=== PATIENT | male | born 1960 | race African-American/Black ===

== ENCOUNTER 2017-12-14 09:36 | Inpatient (IN) ==
[2017-12-14] MEDS ORDERED: methylPREDNISolone SOD SUC 125 MG/2 ML VIAL IV STA (10:04)
[2017-12-14] MEDS ORDERED: ONDANSETRON 4 MG/2 ML VIAL IV STA (10:04)
[2017-12-14] MEDS ORDERED: NITROGLYCERIN 2% OINT 1 INCH/GM PACK TOP STA (10:04)
[2017-12-14] MEDS ORDERED: FUROSEMIDE 100 MG/10 ML VIAL IV STA (10:04)
[2017-12-14 10:20] LABS: Basophils % 0.2 % (0.0-0.8); Eosinophils # 0.1 10*3/uL (0.0-0.87); Eosinophils % 0.5 % (0.00-10.9); Hematocrit 41.9 VOL% (42.0-52.0); Hemoglobin 13.6 GM/DL (14.0-18.0); Immature Granulocytes % 0.5 %; Immature Granulocytes Absolute 0.05 #; Lymphocytes # 1.2 10*3/uL (1.4-4.0); Lymphocytes % 11.8 % (21.2-54.2); Mean Corpuscular HGB Conc 32.5 GM/DL (32-36); Mean Corpuscular Hemoglobin 29 PG (27-34); Mean Corpuscular Volume 88.8 FL (87-102); Mean Platelet Volume 10.9 FL (9.6-12.0); Monocytes # 0.6 10*3/uL (0.11-0.8); Monocytes % 6.5 % (1.7-12.7); Neutrophils % 80.5 % (38.7-73.9); Platelet Count 175 T/CUMM (130-400); Red Blood Count 4.72 MC/CUMM (3.8-5.5); Red Cell Distribution Width 13.9 % (9.3-17.3); White Blood Count 9.9 T/CUMM (4-12)
[2017-12-14 10:29] LABS: INR 1.1; PT Patient Result 11.1 SECS
[2017-12-14] MEDS ORDERED: ALBUTEROL 2.5 MG/3 ML NEB RESP TX SCH (10:30)
[2017-12-14 10:41] LABS: Albumin 3.2 G/DL (3.4-5.0); Bilirubin,Total 0.5 MG/DL (0.2-1.0); Calcium 8.6 MG/DL (8.5-10.1); Osmolality,Calculated 283.4 MOS/KG (273-304); Potassium 3.7 MMOL/L (3.5-5.1); Total Protein 7.2 G/DL (6.4-8.3)
[2017-12-14 10:45] LABS: ABG Base Excess 1.9 MMOL/L (-2.5-2.5); ABG HCO3 25.8 MMOL/L (20-26); ABG Oxygen Saturation 95.6 % (95-100); ABG PCO2 38.3 MM HG (35-48); ABG PH 7.447 (7.35-7.45); ABG PO2 77.7 MM HG (80-95)
[2017-12-14] MEDS ORDERED: MAGNESIUM SULF RIDER 2 GM in PREMIX 1 EACH IV STA (11:09)
[2017-12-14] MEDS ORDERED: cefTRIAXone 1,000 MG in SODIUM CHLORIDE 0.9% 100 ML IV STA (11:10)
[2017-12-14 11:27] LABS: Apearance,Urine CLEAR (Clear); Bilirubin,Urine Negative (Negative); Blood, Urine Negative (Negative); Glucose,Urine (UA) 150 mg/dL (Negative); Ketones,Urine Negative (Negative); Mucus,Urine Occasional /LPF (Occasional); Nitrite,Urine Negative (Negative); Protein,Urine 100 MG/DL; RBC,Urine 1 /HPF (0-4); Squamous Epithelial Cell,Urine Occasional /HPF (0-10); Urine Color Yellow (Yellow); Urine Specific Gravity 1.017 (1.001-1.035); WBC,Urine <1 /HPF (0-6)
[2017-12-14 11:35] LABS: Barbiturates Screen,Urine Negative (Negative); Benzodiazepines Screen,Urine Negative (Negative); Cannabinoid Screen,Urine Negative (Negative); Opiate Screen,Urine Negative (Negative); Phencyclidine Screen,Urine Negative (Negative)
[2017-12-14] MEDS ORDERED: FUROSEMIDE 40 MG TABLET PO PRN (12:12)
[2017-12-14] MEDS ORDERED: NON-FORMULARY MEDICATION (Albuterol Inhaler 2 PUFF) INH PRN (12:12)
[2017-12-14] MEDS ORDERED: ALBUTEROL 2.5 MG/3 ML NEB RESP TX PRN (12:12)
[2017-12-14] MEDS ORDERED: ACETAMINOPHEN 325 MG TABLET PO PRN ×2 (12:14)
[2017-12-14] MEDS ORDERED: guaiFENesin/DM ER 600-30 MG TABLET PO PRN (12:14)
[2017-12-14] MEDS ORDERED: MORPHINE 4 MG/1 ML VIAL IV PRN (12:14)
[2017-12-14] MEDS ORDERED: diphenhydrAMINE CAP 25 MG CAPSULE PO PRN (12:14)
[2017-12-14] MEDS ORDERED: DOCUSATE SODIUM 100 MG CAPSULE PO PRN (12:14)
[2017-12-14] MEDS ORDERED: ONDANSETRON 4 MG/2 ML VIAL IV PRN (12:14)
[2017-12-14] MEDS ORDERED: Fluticasone/Vilanterol [Breo Ellipta 200-25 Mcg Inh] INH SCH (12:15)
[2017-12-14] MEDS ORDERED: MAGNESIUM SULF RIDER 2 GM in PREMIX 1 EACH IV PRN ×2 (12:22→14:28)
[2017-12-14] MEDS ORDERED: MAGNESIUM SULF RIDER 4 GM in PREMIX 1 EACH IV PRN ×2 (12:22→14:28)
[2017-12-14] MEDS ORDERED: guaiFENesin/DM ER 600-30 MG TABLET PO SCH (12:30)
[2017-12-14] MEDS ORDERED: GLUCAGON 1 MG VIAL IM PRN (12:41)
[2017-12-14] MEDS ORDERED: DEXTROSE 50% 25 GM/50 ML VIAL IV PRN (12:41)
[2017-12-14] MEDS: ALBUTEROL/IPRATROPIUM 3 ML NEB RESP TX SCH ×2 (13:30→19:08)
[2017-12-14] MEDS ORDERED: POTASSIUM CHLORIDE 20 MEQ TABLET PO ONE (14:28)
[2017-12-14 15:02] LABS: CKMB % 5.8 %
[2017-12-14] MEDS: BUDESONIDE/FORMOTEROL 160-4.5 INHALER 6 GM INH SCH ×2 (16:01→22:48)
[2017-12-14] MEDS: CYANOCOBALAMIN 500 MCG TABLET PO SCH (16:01)
[2017-12-14] MEDS: ASPIRIN EC 81 MG TABLET PO SCH (16:01)
[2017-12-14] MEDS: SODIUM CHLORIDE 0.9% 1,000 ML IV SCH (16:01)
[2017-12-14] MEDS: OMEGA 3 ACID ETHYL ESTERS 1 GM CAPSULE PO SCH (16:02)
[2017-12-14] MEDS: hydrALAZINE 25 MG TABLET PO SCH ×2 (16:02→22:50)
[2017-12-14] MEDS: PANTOPRAZOLE 40 MG TABLET PO SCH (16:02)
[2017-12-14] MEDS: METOPROLOL TARTRATE 50 MG TABLET PO SCH ×2 (16:02→22:48)
[2017-12-14] MEDS: GABAPENTIN 300 MG CAPSULE PO SCH ×2 (16:02→22:48)
[2017-12-14] MEDS: AZITHROMYCIN INJ 500 MG in SODIUM CHLORIDE 0.9% 250 ML IV SCH (16:13)
[2017-12-14] MEDS: INSULIN LISPRO 100 UNIT/ML SUBCUT SCH (17:37)
[2017-12-14 18:46] LABS: CKMB % 7.4 %
[2017-12-14] MEDS ORDERED: ENOXAPARIN 120 MG/0.8 ML SYRINGE SUBCUT ONE (21:30)
[2017-12-14] MEDS: NITROGLYCERIN 2% OINT 1 INCH/GM PACK TOP SCH (22:47)
[2017-12-14] MEDS: ENOXAPARIN 40 MG/0.4 ML SYRINGE SUBCUT SCH (22:48)
[2017-12-14] MEDS: MONTELUKAST 10 MG TABLET PO SCH (22:48)
[2017-12-14 23:47] LABS: CKMB % 8.5 %
[2017-12-15] MEDS: SODIUM CHLORIDE 0.9% 1,000 ML IV SCH (02:15)
[2017-12-15 05:33] LABS: Basophils % 0.1 % (0.0-0.8); Hematocrit 39.5 VOL% (42.0-52.0); Hemoglobin 12.8 GM/DL (14.0-18.0); Immature Granulocytes % 0.5 %; Immature Granulocytes Absolute 0.07 #; Lymphocytes # 0.5 10*3/uL (1.4-4.0); Lymphocytes % 3.6 % (21.2-54.2); Mean Corpuscular HGB Conc 32.4 GM/DL (32-36); Mean Corpuscular Hemoglobin 29 PG (27-34); Mean Corpuscular Volume 88.6 FL (87-102); Mean Platelet Volume 12.1 FL (9.6-12.0); Monocytes # 0.2 10*3/uL (0.11-0.8); Monocytes % 1.4 % (1.7-12.7); Neutrophils # 12.5 10*3/uL (1.4-7.4); Neutrophils % 94.4 % (38.7-73.9); Platelet Count 146 T/CUMM (130-400); Red Blood Count 4.46 MC/CUMM (3.8-5.5); Red Cell Distribution Width 13.9 % (9.3-17.3); White Blood Count 13.3 T/CUMM (4-12)
[2017-12-15 06:04] LABS: Lymphocytes 8 % (20-55); Segmented Neutrophils 91 % (50-85); Total Cells Counted 100
[2017-12-15 06:05] LABS: Hypochromasia 1+; Microcytosis Slight; Ovalocytes Slight
[2017-12-15 06:06] LABS: Calcium 8.7 MG/DL (8.5-10.1); Osmolality,Calculated 285.8 MOS/KG (273-304); Platelet Estimate Adequate; Potassium 4.6 MMOL/L (3.5-5.1)
[2017-12-15 06:21] LABS: Albumin 2.9 G/DL (3.4-5.0); Bilirubin,Total 0.8 MG/DL (0.2-1.0); Calcium 8.8 MG/DL (8.5-10.1); Osmolality,Calculated 285.8 MOS/KG (273-304); Potassium 4.7 MMOL/L (3.5-5.1); Risk Ratio 2.9; Thyroid Stimulating Hormone 0.25 uIU/ml (0.358-3.74); Total Protein 6.9 G/DL (6.4-8.3); VLDL CHOLESTEROL 15.8 MG/DL
[2017-12-15] MEDS: ALBUTEROL/IPRATROPIUM 3 ML NEB RESP TX SCH ×4 (07:00→19:30)
[2017-12-15] MEDS ORDERED: MAGNESIUM SULF RIDER 2 GM in PREMIX 1 EACH IV PRN (08:34)
[2017-12-15] MEDS ORDERED: POTASSIUM CHLORIDE RIDER 10 MEQ in PREMIX 1 EACH IV PRN (08:34)
[2017-12-15] MEDS ORDERED: DIAZEPAM 5 MG TABLET PO ONE (08:37)
[2017-12-15] MEDS ORDERED: diphenhydrAMINE CAP 25 MG CAPSULE PO ONE (08:37)
[2017-12-15] MEDS: INSULIN LISPRO 100 UNIT/ML SUBCUT SCH ×2 (08:38→17:09)
[2017-12-15] MEDS ORDERED: ATORVASTATIN 40 MG TABLET PO ONE (08:42)
[2017-12-15] MEDS ORDERED: SODIUM CHLORIDE 0.45% 1,000 ML IV SCH (09:00)
[2017-12-15] MEDS ORDERED: SODIUM CHLORIDE 0.9% 1,000 ML IV SCH (09:00)
[2017-12-15] MEDS: OMEGA 3 ACID ETHYL ESTERS 1 GM CAPSULE PO SCH (09:38)
[2017-12-15] MEDS: GABAPENTIN 300 MG CAPSULE PO SCH ×2 (09:38→23:04)
[2017-12-15] MEDS ORDERED: BENZONATATE 100 MG CAPSULE PO ONE (10:38)
[2017-12-15] MEDS: NITROGLYCERIN 2% OINT 1 INCH/GM PACK TOP SCH ×2 (10:43→23:04)
[2017-12-15] MEDS: CYANOCOBALAMIN 500 MCG TABLET PO SCH (10:43)
[2017-12-15] MEDS: PANTOPRAZOLE 40 MG TABLET PO SCH (10:43)
[2017-12-15] MEDS: METOPROLOL TARTRATE 50 MG TABLET PO SCH ×2 (10:44→23:05)
[2017-12-15] MEDS: hydrALAZINE 25 MG TABLET PO SCH ×3 (10:44→23:04)
[2017-12-15] MEDS: ASPIRIN EC 81 MG TABLET PO SCH (10:44)
[2017-12-15] MEDS: BUDESONIDE/FORMOTEROL 160-4.5 INHALER 6 GM INH SCH ×2 (10:45→23:05)
[2017-12-15] MEDS ORDERED: MIDAZOLAM 2 MG/2 ML VIAL ONE (11:36)
[2017-12-15] MEDS ORDERED: NITROGLYCERIN DRIP 50 MG/250 ML BOTTLE IV ONE (11:36)
[2017-12-15] MEDS ORDERED: fentaNYL 100 MCG/2 ML VIAL ONE (11:37)
[2017-12-15] MEDS ORDERED: VERAPAMIL 5 MG/2 ML VIAL ONE (11:37)
[2017-12-15] MEDS ORDERED: ENOXAPARIN 60 MG/0.6 ML SYRINGE ONE (12:05)
[2017-12-15] MEDS ORDERED: TIROFIBAN 5,000 MCG/100 ML PREMIX IV ONE (12:32)
[2017-12-15] MEDS ORDERED: LIDOCAINE 1%/EPI INJ 20 ML VIAL ONE (12:50)
[2017-12-15] MEDS ORDERED: HEPARIN/NACL 0.9% 2 UNITS/ML 500 ML IV ONE (12:58)
[2017-12-15] MEDS ORDERED: TIROFIBAN 5,000 MCG/100 ML PREMIX IV SCH (13:00)
[2017-12-15] MEDS ORDERED: TICAGRELOR 90 MG TABLET ONE (13:13)
[2017-12-15] MEDS: cefTRIAXone 1,000 MG in SYRINGE 1 EACH IV SCH (15:09)
[2017-12-15] MEDS ORDERED: AZITHROMYCIN INJ 500 MG in SODIUM CHLORIDE 0.9% 250 ML IV SCH (15:30)
[2017-12-15] MEDS: AZITHROMYCIN INJ 500 MG in SODIUM CHLORIDE 0.9% 250 ML IV SCH (16:21)
[2017-12-15] MEDS ORDERED: BENZONATATE 100 MG CAPSULE PO PRN (16:29)
[2017-12-15] MEDS: ENOXAPARIN 40 MG/0.4 ML SYRINGE SUBCUT SCH (23:04)
[2017-12-15] MEDS: MONTELUKAST 10 MG TABLET PO SCH (23:05)
[2017-12-15] MEDS: ATORVASTATIN 40 MG TABLET PO SCH (23:05)
[2017-12-16] MEDS: ALBUTEROL/IPRATROPIUM 3 ML NEB RESP TX SCH ×4 (00:50→19:10)
[2017-12-16 04:57] LABS: Basophils % 0.1 % (0.0-0.8); Hematocrit 35.7 VOL% (42.0-52.0); Hemoglobin 11.6 GM/DL (14.0-18.0); Immature Granulocytes % 0.6 %; Immature Granulocytes Absolute 0.09 #; Lymphocytes % 6.9 % (21.2-54.2); Mean Corpuscular HGB Conc 32.5 GM/DL (32-36); Mean Corpuscular Hemoglobin 29 PG (27-34); Mean Corpuscular Volume 88.4 FL (87-102); Mean Platelet Volume 11.6 FL (9.6-12.0); Monocytes % 6.8 % (1.7-12.7); Neutrophils # 12.4 10*3/uL (1.4-7.4); Neutrophils % 85.6 % (38.7-73.9); Platelet Count 177 T/CUMM (130-400); Red Blood Count 4.04 MC/CUMM (3.8-5.5); Red Cell Distribution Width 14.6 % (9.3-17.3); White Blood Count 14.4 T/CUMM (4-12)
[2017-12-16 05:28] LABS: Alanine Aminotransferase 33 U/L (16-61); Albumin 2.8 G/DL (3.4-5.0); Alkaline Phosphatase 130 U/L (45-117); Aspartate Amino Transferase 94 U/L (0-37); Bilirubin,Total < 0.39 MG/DL (0.2-1.0); Blood Urea Nitrogen 26 MG/DL (7-18); Calcium 8.1 MG/DL (8.5-10.1); Glucose 363 MG/DL (74-106); Osmolality,Calculated 298.4 MOS/KG (273-304); Sodium 140 MMOL/L (136-145)
[2017-12-16 05:30] LABS: CKMB % 7.2 %
[2017-12-16] MEDS: METOPROLOL TARTRATE 50 MG TABLET PO SCH (09:43)
[2017-12-16] MEDS: ASPIRIN EC 81 MG TABLET PO SCH (09:43)
[2017-12-16] MEDS: TICAGRELOR 90 MG TABLET PO SCH ×2 (09:43→21:58)
[2017-12-16] MEDS: OMEGA 3 ACID ETHYL ESTERS 1 GM CAPSULE PO SCH (09:43)
[2017-12-16] MEDS: GABAPENTIN 300 MG CAPSULE PO SCH ×2 (09:43→21:59)
[2017-12-16] MEDS: CYANOCOBALAMIN 500 MCG TABLET PO SCH (09:43)
[2017-12-16] MEDS: BUDESONIDE/FORMOTEROL 160-4.5 INHALER 6 GM INH SCH ×2 (09:43→21:59)
[2017-12-16] MEDS: INSULIN LISPRO 100 UNIT/ML SUBCUT SCH ×2 (09:44→17:46)
[2017-12-16] MEDS: hydrALAZINE 25 MG TABLET PO SCH ×3 (09:44→21:58)
[2017-12-16] MEDS: PANTOPRAZOLE 40 MG TABLET PO SCH (09:44)
[2017-12-16] MEDS: AZITHROMYCIN 250 MG TABLET PO SCH (12:04)
[2017-12-16] MEDS: NITROGLYCERIN 2% OINT 1 INCH/GM PACK TOP SCH ×2 (12:04→21:59)
[2017-12-16] MEDS: cefTRIAXone 1,000 MG in SYRINGE 1 EACH IV SCH (12:10)
[2017-12-16] MEDS: FUROSEMIDE 40 MG/4 ML VIAL IV SCH (13:09)
[2017-12-16] MEDS: SODIUM CHLORIDE 0.9% 1,000 ML IV SCH (15:24)
[2017-12-16] MEDS: ENOXAPARIN 40 MG/0.4 ML SYRINGE SUBCUT SCH (21:57)
[2017-12-16] MEDS: MONTELUKAST 10 MG TABLET PO SCH (21:58)
[2017-12-16] MEDS: INSULIN GLARGINE 100 UNIT/ML SUBCUT SCH (21:58)
[2017-12-16] MEDS: ATORVASTATIN 40 MG TABLET PO SCH (21:59)
[2017-12-16] MEDS: NEBIVOLOL 10 MG TABLET PO SCH (21:59)
[2017-12-17] MEDS: ALBUTEROL/IPRATROPIUM 3 ML NEB RESP TX SCH ×4 (00:26→19:17)
[2017-12-17 05:44] LABS: Basophils % 0.1 % (0.0-0.8); Eosinophils # 0.1 10*3/uL (0.0-0.87); Eosinophils % 0.6 % (0.00-10.9); Hematocrit 35.4 VOL% (42.0-52.0); Hemoglobin 11.2 GM/DL (14.0-18.0); Immature Granulocytes % 0.6 %; Immature Granulocytes Absolute 0.05 #; Lymphocytes % 10.8 % (21.2-54.2); Mean Corpuscular HGB Conc 31.6 GM/DL (32-36); Mean Corpuscular Hemoglobin 29 PG (27-34); Mean Corpuscular Volume 90.5 FL (87-102); Monocytes # 0.8 10*3/uL (0.11-0.8); Monocytes % 9.3 % (1.7-12.7); Neutrophils # 7.1 10*3/uL (1.4-7.4); Neutrophils % 78.6 % (38.7-73.9); Platelet Count 170 T/CUMM (130-400); Red Blood Count 3.91 MC/CUMM (3.8-5.5); Red Cell Distribution Width 14.4 % (9.3-17.3)
[2017-12-17 06:10] LABS: Calcium 8.2 MG/DL (8.5-10.1); Osmolality,Calculated 288.3 MOS/KG (273-304); Potassium 3.5 MMOL/L (3.5-5.1)
[2017-12-17] MEDS: SODIUM CHLORIDE 0.9% 1,000 ML IV SCH ×2 (06:40→12:31)
[2017-12-17] MEDS ORDERED: methylPREDNISolone SOD SUC 125 MG/2 ML VIAL IV STA (09:35)
[2017-12-17] MEDS ORDERED: FUROSEMIDE 40 MG/4 ML VIAL IV STA (09:37)
[2017-12-17] MEDS: FUROSEMIDE 40 MG/4 ML VIAL IV SCH (09:48)
[2017-12-17] MEDS: PANTOPRAZOLE 40 MG TABLET PO SCH (09:49)
[2017-12-17] MEDS: ASPIRIN EC 81 MG TABLET PO SCH (09:49)
[2017-12-17] MEDS: GABAPENTIN 300 MG CAPSULE PO SCH ×2 (09:49→21:47)
[2017-12-17] MEDS: TICAGRELOR 90 MG TABLET PO SCH ×2 (09:49→21:49)
[2017-12-17] MEDS: CYANOCOBALAMIN 500 MCG TABLET PO SCH (09:49)
[2017-12-17] MEDS: hydrALAZINE 25 MG TABLET PO SCH ×3 (09:49→21:47)
[2017-12-17] MEDS: NEBIVOLOL 10 MG TABLET PO SCH (09:49)
[2017-12-17] MEDS: INSULIN LISPRO 100 UNIT/ML SUBCUT SCH ×2 (09:50→17:45)
[2017-12-17] MEDS: BUDESONIDE/FORMOTEROL 160-4.5 INHALER 6 GM INH SCH ×2 (09:50→21:51)
[2017-12-17] MEDS: OMEGA 3 ACID ETHYL ESTERS 1 GM CAPSULE PO SCH (09:55)
[2017-12-17] MEDS: NITROGLYCERIN 2% OINT 1 INCH/GM PACK TOP SCH ×2 (09:56→21:50)
[2017-12-17] MEDS ORDERED: POTASSIUM CHLORIDE 20 MEQ TABLET PO ONE (10:04)
[2017-12-17] MEDS: cefTRIAXone 1,000 MG in SYRINGE 1 EACH IV SCH (12:15)
[2017-12-17] MEDS: MAGNESIUM OXIDE 400 MG TABLET PO SCH ×2 (12:15→21:49)
[2017-12-17] MEDS: AZITHROMYCIN 250 MG TABLET PO SCH (12:15)
[2017-12-17] MEDS ORDERED: THEOPHYLLINE ER 300 MG TABLET PO ONE (18:50)
[2017-12-17] MEDS: ATORVASTATIN 40 MG TABLET PO SCH (21:47)
[2017-12-17] MEDS: ENOXAPARIN 40 MG/0.4 ML SYRINGE SUBCUT SCH (21:47)
[2017-12-17] MEDS: MONTELUKAST 10 MG TABLET PO SCH (21:47)
[2017-12-17] MEDS: THEOPHYLLINE ER 300 MG TABLET PO SCH (21:48)
[2017-12-17] MEDS: DILTIAZEM CD 240 MG CAPSULE PO SCH (21:49)
[2017-12-17] MEDS: INSULIN GLARGINE 100 UNIT/ML SUBCUT SCH (21:50)
[2017-12-17] MEDS: ALBUTEROL 2 MG TABLET PO SCH (23:05)
[2017-12-18] MEDS: ALBUTEROL/IPRATROPIUM 3 ML NEB RESP TX SCH ×4 (00:32→20:48)
[2017-12-18 05:53] LABS: Basophils % 0.1 % (0.0-0.8); Hemoglobin 12.9 GM/DL (14.0-18.0); Immature Granulocytes % 0.7 %; Lymphocytes # 0.3 10*3/uL (1.4-4.0); Lymphocytes % 2.3 % (21.2-54.2); Mean Corpuscular HGB Conc 32.3 GM/DL (32-36); Mean Corpuscular Hemoglobin 29 PG (27-34); Mean Corpuscular Volume 89.1 FL (87-102); Mean Platelet Volume 11.2 FL (9.6-12.0); Monocytes # 0.2 10*3/uL (0.11-0.8); Monocytes % 1.6 % (1.7-12.7); Neutrophils # 13.5 10*3/uL (1.4-7.4); Neutrophils % 95.3 % (38.7-73.9); Platelet Count 203 T/CUMM (130-400); Red Blood Count 4.49 MC/CUMM (3.8-5.5); Red Cell Distribution Width 13.8 % (9.3-17.3); White Blood Count 14.1 T/CUMM (4-12)
[2017-12-18] MEDS: ALBUTEROL 2 MG TABLET PO SCH ×3 (06:09→21:06)
[2017-12-18 06:26] LABS: Calcium 8.7 MG/DL (8.5-10.1); Osmolality,Calculated 295.7 MOS/KG (273-304); Potassium 4.4 MMOL/L (3.5-5.1)
[2017-12-18 07:21] LABS: Band Neutrophils 1 % (0-10); Hypochromasia 1+; Platelet Estimate Adequate; Segmented Neutrophils 98 % (50-85); Target Cells Slight; Total Cells Counted 100
[2017-12-18] MEDS: INSULIN LISPRO 100 UNIT/ML SUBCUT SCH ×4 (09:36→20:57)
[2017-12-18] MEDS: MONTELUKAST 10 MG TABLET PO SCH ×2 (09:38→20:58)
[2017-12-18] MEDS: THEOPHYLLINE ER 300 MG TABLET PO SCH ×2 (09:38→20:58)
[2017-12-18] MEDS: PANTOPRAZOLE 40 MG TABLET PO SCH (09:38)
[2017-12-18] MEDS: ASPIRIN EC 81 MG TABLET PO SCH (09:38)
[2017-12-18] MEDS: TICAGRELOR 90 MG TABLET PO SCH ×2 (09:38→20:58)
[2017-12-18] MEDS: GABAPENTIN 300 MG CAPSULE PO SCH ×2 (09:39→20:59)
[2017-12-18] MEDS: MAGNESIUM OXIDE 400 MG TABLET PO SCH ×2 (09:39→20:59)
[2017-12-18] MEDS: hydrALAZINE 25 MG TABLET PO SCH ×3 (09:39→20:59)
[2017-12-18] MEDS: CYANOCOBALAMIN 500 MCG TABLET PO SCH (09:39)
[2017-12-18] MEDS: OMEGA 3 ACID ETHYL ESTERS 1 GM CAPSULE PO SCH (09:43)
[2017-12-18] MEDS: BUDESONIDE/FORMOTEROL 160-4.5 INHALER 6 GM INH SCH ×2 (09:43→20:59)
[2017-12-18] MEDS: NITROGLYCERIN 2% OINT 1 INCH/GM PACK TOP SCH (09:43)
[2017-12-18] MEDS: FUROSEMIDE 40 MG/4 ML VIAL IV SCH (09:44)
[2017-12-18] MEDS: AZITHROMYCIN 250 MG TABLET PO SCH (13:47)
[2017-12-18] MEDS: BENZONATATE 100 MG CAPSULE PO SCH ×3 (13:47→20:58)
[2017-12-18] MEDS: cefTRIAXone 1,000 MG in SYRINGE 1 EACH IV SCH (13:49)
[2017-12-18] MEDS: INSULIN GLARGINE 100 UNIT/ML SUBCUT SCH (20:57)
[2017-12-18] MEDS: DILTIAZEM CD 240 MG CAPSULE PO SCH (20:58)
[2017-12-18] MEDS: ATORVASTATIN 40 MG TABLET PO SCH (20:58)
[2017-12-18] MEDS: ENOXAPARIN 40 MG/0.4 ML SYRINGE SUBCUT SCH (20:58)
[2017-12-19] MEDS: ALBUTEROL/IPRATROPIUM 3 ML NEB RESP TX SCH ×4 (01:08→19:56)
[2017-12-19 03:28] LABS: Basophils % 0.1 % (0.0-0.8); Hematocrit 36.3 VOL% (42.0-52.0); Immature Granulocytes % 0.6 %; Immature Granulocytes Absolute 0.09 #; Lymphocytes # 0.7 10*3/uL (1.4-4.0); Lymphocytes % 4.6 % (21.2-54.2); Mean Corpuscular HGB Conc 33.1 GM/DL (32-36); Mean Corpuscular Hemoglobin 29 PG (27-34); Mean Corpuscular Volume 87.5 FL (87-102); Mean Platelet Volume 11.5 FL (9.6-12.0); Monocytes % 6.2 % (1.7-12.7); Neutrophils # 13.5 10*3/uL (1.4-7.4); Neutrophils % 88.5 % (38.7-73.9); Platelet Count 218 T/CUMM (130-400); Red Blood Count 4.15 MC/CUMM (3.8-5.5); Red Cell Distribution Width 14.2 % (9.3-17.3); White Blood Count 15.3 T/CUMM (4-12)
[2017-12-19 03:51] LABS: Calcium 8.7 MG/DL (8.5-10.1); Osmolality,Calculated 290.3 MOS/KG (273-304); Potassium 3.4 MMOL/L (3.5-5.1)
[2017-12-19 04:29] LABS: Lymphocytes 8 % (20-55); Segmented Neutrophils 89 % (50-85)
[2017-12-19 04:32] LABS: Platelet Estimate Normal; Total Cells Counted 100
[2017-12-19] MEDS: ALBUTEROL 2 MG TABLET PO SCH ×3 (06:15→21:45)
[2017-12-19] MEDS: INSULIN LISPRO 100 UNIT/ML SUBCUT SCH ×4 (07:52→21:41)
[2017-12-19] MEDS: INSULIN ASPART PROTAMINE/ASPART 70/30 100 UNIT/ML SUBCUT SCH (09:33)
[2017-12-19] MEDS: BENZONATATE 100 MG CAPSULE PO SCH ×3 (09:34→21:44)
[2017-12-19] MEDS: OMEGA 3 ACID ETHYL ESTERS 1 GM CAPSULE PO SCH (09:34)
[2017-12-19] MEDS: MAGNESIUM OXIDE 400 MG TABLET PO SCH ×2 (09:35→21:44)
[2017-12-19] MEDS: THEOPHYLLINE ER 300 MG TABLET PO SCH ×2 (09:35→21:42)
[2017-12-19] MEDS: CYANOCOBALAMIN 500 MCG TABLET PO SCH (09:35)
[2017-12-19] MEDS: FUROSEMIDE 40 MG TABLET PO SCH (09:36)
[2017-12-19] MEDS: GABAPENTIN 300 MG CAPSULE PO SCH ×2 (09:36→21:43)
[2017-12-19] MEDS: TICAGRELOR 90 MG TABLET PO SCH ×2 (09:36→21:43)
[2017-12-19] MEDS: hydrALAZINE 25 MG TABLET PO SCH ×3 (09:36→21:42)
[2017-12-19] MEDS: AZITHROMYCIN 250 MG TABLET PO SCH ×2 (09:37→10:41)
[2017-12-19] MEDS: ASPIRIN EC 81 MG TABLET PO SCH (09:37)
[2017-12-19] MEDS: PANTOPRAZOLE 40 MG TABLET PO SCH (09:37)
[2017-12-19] MEDS: MONTELUKAST 10 MG TABLET PO SCH ×2 (09:37→21:43)
[2017-12-19] MEDS: BUDESONIDE/FORMOTEROL 160-4.5 INHALER 6 GM INH SCH ×2 (09:37→21:52)
[2017-12-19] MEDS: cefTRIAXone 1,000 MG in SYRINGE 1 EACH IV SCH (13:12)
[2017-12-19] MEDS: INSULIN GLARGINE 100 UNIT/ML SUBCUT SCH (21:40)
[2017-12-19] MEDS: ATORVASTATIN 40 MG TABLET PO SCH (21:42)
[2017-12-19] MEDS: DILTIAZEM CD 240 MG CAPSULE PO SCH (21:42)
[2017-12-19] MEDS: ENOXAPARIN 40 MG/0.4 ML SYRINGE SUBCUT SCH (21:42)
[2017-12-19] MEDS: CYCLOBENZAPRINE 10 MG TABLET PO PRN (21:45)
[2017-12-20] MEDS: ALBUTEROL/IPRATROPIUM 3 ML NEB RESP TX SCH ×4 (00:55→19:53)
[2017-12-20 05:09] LABS: Basophils % 0.1 % (0.0-0.8); Eosinophils # 0.1 10*3/uL (0.0-0.87); Eosinophils % 1.2 % (0.00-10.9); Hematocrit 37.3 VOL% (42.0-52.0); Hemoglobin 11.8 GM/DL (14.0-18.0); Immature Granulocytes % 0.6 %; Immature Granulocytes Absolute 0.06 #; Lymphocytes % 9.6 % (21.2-54.2); Mean Corpuscular HGB Conc 31.6 GM/DL (32-36); Mean Corpuscular Hemoglobin 29 PG (27-34); Mean Corpuscular Volume 91.2 FL (87-102); Mean Platelet Volume 11.5 FL (9.6-12.0); Monocytes # 0.9 10*3/uL (0.11-0.8); Monocytes % 8.6 % (1.7-12.7); Neutrophils # 8.3 10*3/uL (1.4-7.4); Neutrophils % 79.9 % (38.7-73.9); Platelet Count 218 T/CUMM (130-400); Red Blood Count 4.09 MC/CUMM (3.8-5.5); Red Cell Distribution Width 14.4 % (9.3-17.3); White Blood Count 10.4 T/CUMM (4-12)
[2017-12-20 05:45] LABS: Calcium 8.4 MG/DL (8.5-10.1); Osmolality,Calculated 292.3 MOS/KG (273-304); Potassium 3.7 MMOL/L (3.5-5.1)
[2017-12-20] MEDS: ALBUTEROL 2 MG TABLET PO SCH ×3 (06:05→21:02)
[2017-12-20] MEDS: INSULIN ASPART PROTAMINE/ASPART 70/30 100 UNIT/ML SUBCUT SCH (10:04)
[2017-12-20] MEDS: INSULIN LISPRO 100 UNIT/ML SUBCUT SCH ×4 (10:05→21:01)
[2017-12-20] MEDS: CYANOCOBALAMIN 500 MCG TABLET PO SCH (10:06)
[2017-12-20] MEDS: BENZONATATE 100 MG CAPSULE PO SCH ×3 (10:06→21:02)
[2017-12-20] MEDS: AZITHROMYCIN 250 MG TABLET PO SCH ×2 (10:07→12:28)
[2017-12-20] MEDS: THEOPHYLLINE ER 300 MG TABLET PO SCH ×2 (10:07→21:02)
[2017-12-20] MEDS: TICAGRELOR 90 MG TABLET PO SCH ×2 (10:07→21:02)
[2017-12-20] MEDS: PANTOPRAZOLE 40 MG TABLET PO SCH (10:08)
[2017-12-20] MEDS: MONTELUKAST 10 MG TABLET PO SCH ×2 (10:08→21:02)
[2017-12-20] MEDS: MAGNESIUM OXIDE 400 MG TABLET PO SCH ×2 (10:08→21:02)
[2017-12-20] MEDS: FUROSEMIDE 40 MG TABLET PO SCH (10:09)
[2017-12-20] MEDS: ASPIRIN EC 81 MG TABLET PO SCH (10:09)
[2017-12-20] MEDS: GABAPENTIN 300 MG CAPSULE PO SCH ×2 (10:09→21:02)
[2017-12-20] MEDS: OMEGA 3 ACID ETHYL ESTERS 1 GM CAPSULE PO SCH (10:09)
[2017-12-20] MEDS: BUDESONIDE/FORMOTEROL 160-4.5 INHALER 6 GM INH SCH ×2 (10:10→21:07)
[2017-12-20] MEDS: hydrALAZINE 25 MG TABLET PO SCH ×3 (10:10→21:02)
[2017-12-20] MEDS: cefTRIAXone 1,000 MG in SYRINGE 1 EACH IV SCH (14:14)
[2017-12-20] MEDS: ENOXAPARIN 40 MG/0.4 ML SYRINGE SUBCUT SCH (21:01)
[2017-12-20] MEDS: INSULIN GLARGINE 100 UNIT/ML SUBCUT SCH (21:01)
[2017-12-20] MEDS: DILTIAZEM CD 240 MG CAPSULE PO SCH (21:01)
[2017-12-20] MEDS: ATORVASTATIN 40 MG TABLET PO SCH (21:02)
[2017-12-21] MEDS: ALBUTEROL/IPRATROPIUM 3 ML NEB RESP TX SCH ×4 (02:47→19:32)
[2017-12-21 05:41] LABS: Calcium 8.4 MG/DL (8.5-10.1); Osmolality,Calculated 289.4 MOS/KG (273-304); Potassium 3.9 MMOL/L (3.5-5.1)
[2017-12-21] MEDS: ALBUTEROL 2 MG TABLET PO SCH ×3 (06:06→21:22)
[2017-12-21] MEDS: BUDESONIDE/FORMOTEROL 160-4.5 INHALER 6 GM INH SCH ×2 (09:43→20:16)
[2017-12-21] MEDS: INSULIN ASPART PROTAMINE/ASPART 70/30 100 UNIT/ML SUBCUT SCH (09:43)
[2017-12-21] MEDS: INSULIN LISPRO 100 UNIT/ML SUBCUT SCH ×4 (09:43→20:42)
[2017-12-21] MEDS: CYANOCOBALAMIN 500 MCG TABLET PO SCH (09:44)
[2017-12-21] MEDS: BENZONATATE 100 MG CAPSULE PO SCH ×3 (09:44→20:15)
[2017-12-21] MEDS: hydrALAZINE 25 MG TABLET PO SCH ×3 (09:44→20:15)
[2017-12-21] MEDS: ASPIRIN EC 81 MG TABLET PO SCH (09:45)
[2017-12-21] MEDS: GABAPENTIN 300 MG CAPSULE PO SCH ×2 (09:45→20:15)
[2017-12-21] MEDS: FUROSEMIDE 40 MG TABLET PO SCH (09:45)
[2017-12-21] MEDS: MAGNESIUM OXIDE 400 MG TABLET PO SCH ×2 (09:45→20:15)
[2017-12-21] MEDS: PANTOPRAZOLE 40 MG TABLET PO SCH (09:45)
[2017-12-21] MEDS: THEOPHYLLINE ER 300 MG TABLET PO SCH ×2 (09:45→20:15)
[2017-12-21] MEDS: TICAGRELOR 90 MG TABLET PO SCH ×2 (09:45→20:15)
[2017-12-21] MEDS: MONTELUKAST 10 MG TABLET PO SCH ×2 (09:45→20:15)
[2017-12-21] MEDS: OMEGA 3 ACID ETHYL ESTERS 1 GM CAPSULE PO SCH (09:45)
[2017-12-21] MEDS: AZITHROMYCIN 250 MG TABLET PO SCH (12:37)
[2017-12-21] MEDS: cefTRIAXone 1,000 MG in SYRINGE 1 EACH IV SCH (12:37)
[2017-12-21] MEDS: DILTIAZEM CD 240 MG CAPSULE PO SCH (20:15)
[2017-12-21] MEDS: ATORVASTATIN 40 MG TABLET PO SCH (20:15)
[2017-12-21] MEDS: ENOXAPARIN 40 MG/0.4 ML SYRINGE SUBCUT SCH (20:16)
[2017-12-21] MEDS: INSULIN GLARGINE 100 UNIT/ML SUBCUT SCH (20:42)
[2017-12-22] MEDS: ALBUTEROL/IPRATROPIUM 3 ML NEB RESP TX SCH ×4 (00:40→19:02)
[2017-12-22] MEDS: ALBUTEROL 2 MG TABLET PO SCH ×2 (06:24→14:02)
[2017-12-22] MEDS: BUDESONIDE/FORMOTEROL 160-4.5 INHALER 6 GM INH SCH ×2 (10:04→22:46)
[2017-12-22] MEDS: BENZONATATE 100 MG CAPSULE PO SCH ×3 (10:05→22:47)
[2017-12-22] MEDS: MAGNESIUM OXIDE 400 MG TABLET PO SCH ×2 (10:05→22:38)
[2017-12-22] MEDS: GABAPENTIN 300 MG CAPSULE PO SCH ×2 (10:05→22:42)
[2017-12-22] MEDS: CYANOCOBALAMIN 500 MCG TABLET PO SCH (10:05)
[2017-12-22] MEDS: OMEGA 3 ACID ETHYL ESTERS 1 GM CAPSULE PO SCH (10:06)
[2017-12-22] MEDS: hydrALAZINE 25 MG TABLET PO SCH ×3 (10:06→22:38)
[2017-12-22] MEDS: MONTELUKAST 10 MG TABLET PO SCH ×2 (10:06→22:36)
[2017-12-22] MEDS: ASPIRIN EC 81 MG TABLET PO SCH (10:06)
[2017-12-22] MEDS: THEOPHYLLINE ER 300 MG TABLET PO SCH ×2 (10:06→22:37)
[2017-12-22] MEDS: PANTOPRAZOLE 40 MG TABLET PO SCH (10:06)
[2017-12-22] MEDS: FUROSEMIDE 40 MG TABLET PO SCH (10:06)
[2017-12-22] MEDS: TICAGRELOR 90 MG TABLET PO SCH ×2 (10:06→22:46)
[2017-12-22] MEDS: INSULIN LISPRO 100 UNIT/ML SUBCUT SCH ×3 (10:07→17:00)
[2017-12-22] MEDS: INSULIN ASPART PROTAMINE/ASPART 70/30 100 UNIT/ML SUBCUT SCH (10:07)
[2017-12-22] MEDS: LEVOFLOXACIN INJ 500 MG in PREMIX 1 EACH IV SCH (15:45)
[2017-12-22] MEDS: INSULIN GLARGINE 100 UNIT/ML SUBCUT SCH (22:36)
[2017-12-22] MEDS: DILTIAZEM CD 240 MG CAPSULE PO SCH (22:36)
[2017-12-22] MEDS: ENOXAPARIN 40 MG/0.4 ML SYRINGE SUBCUT SCH (22:38)
[2017-12-23] MEDS: ATORVASTATIN 40 MG TABLET PO SCH ×2 (00:23→21:35)
[2017-12-23] MEDS: ALBUTEROL 2 MG TABLET PO SCH ×2 (00:23→06:04)
[2017-12-23] MEDS: INSULIN LISPRO 100 UNIT/ML SUBCUT SCH ×5 (00:23→21:37)
[2017-12-23] MEDS: ALBUTEROL/IPRATROPIUM 3 ML NEB RESP TX SCH ×4 (00:46→20:31)
[2017-12-23 06:02] LABS: Basophils % 0.3 % (0.0-0.8); Eosinophils # 0.2 10*3/uL (0.0-0.87); Eosinophils % 2.7 % (0.00-10.9); Hematocrit 37.5 VOL% (42.0-52.0); Hemoglobin 11.9 GM/DL (14.0-18.0); Immature Granulocytes % 0.4 %; Immature Granulocytes Absolute 0.03 #; Lymphocytes # 0.9 10*3/uL (1.4-4.0); Lymphocytes % 12.4 % (21.2-54.2); Mean Corpuscular HGB Conc 31.7 GM/DL (32-36); Mean Corpuscular Hemoglobin 29 PG (27-34); Mean Corpuscular Volume 90.4 FL (87-102); Mean Platelet Volume 11.2 FL (9.6-12.0); Monocytes # 0.8 10*3/uL (0.11-0.8); Monocytes % 10.7 % (1.7-12.7); Neutrophils # 5.4 10*3/uL (1.4-7.4); Neutrophils % 73.5 % (38.7-73.9); Platelet Count 230 T/CUMM (130-400); Red Blood Count 4.15 MC/CUMM (3.8-5.5); Red Cell Distribution Width 14.2 % (9.3-17.3); White Blood Count 7.4 T/CUMM (4-12)
[2017-12-23 06:22] LABS: Hypochromasia 1+
[2017-12-23 06:24] LABS: Platelet Estimate Normal
[2017-12-23 06:34] LABS: Calcium 8.6 MG/DL (8.5-10.1); Osmolality,Calculated 277.7 MOS/KG (273-304); Potassium 3.8 MMOL/L (3.5-5.1)
[2017-12-23] MEDS: THEOPHYLLINE ER 300 MG TABLET PO SCH ×2 (09:03→21:34)
[2017-12-23] MEDS: BENZONATATE 100 MG CAPSULE PO SCH ×3 (09:03→21:34)
[2017-12-23] MEDS: CYANOCOBALAMIN 500 MCG TABLET PO SCH (09:03)
[2017-12-23] MEDS: FUROSEMIDE 40 MG TABLET PO SCH (09:04)
[2017-12-23] MEDS: MAGNESIUM OXIDE 400 MG TABLET PO SCH ×2 (09:04→21:35)
[2017-12-23] MEDS: ASPIRIN EC 81 MG TABLET PO SCH (09:04)
[2017-12-23] MEDS: OMEGA 3 ACID ETHYL ESTERS 1 GM CAPSULE PO SCH (09:04)
[2017-12-23] MEDS: MONTELUKAST 10 MG TABLET PO SCH ×2 (09:04→21:35)
[2017-12-23] MEDS: TICAGRELOR 90 MG TABLET PO SCH ×2 (09:04→21:35)
[2017-12-23] MEDS: hydrALAZINE 25 MG TABLET PO SCH ×3 (09:04→21:35)
[2017-12-23] MEDS: INSULIN ASPART PROTAMINE/ASPART 70/30 100 UNIT/ML SUBCUT SCH (09:04)
[2017-12-23] MEDS: GABAPENTIN 300 MG CAPSULE PO SCH ×2 (09:04→21:35)
[2017-12-23] MEDS: PANTOPRAZOLE 40 MG TABLET PO SCH (09:04)
[2017-12-23] MEDS: BUDESONIDE/FORMOTEROL 160-4.5 INHALER 6 GM INH SCH ×2 (09:08→21:36)
[2017-12-23] MEDS: predniSONE 10 MG TABLET PO SCH (11:19)
[2017-12-23] MEDS: LEVOFLOXACIN INJ 500 MG in PREMIX 1 EACH IV SCH (11:19)
[2017-12-23] MEDS: ENOXAPARIN 40 MG/0.4 ML SYRINGE SUBCUT SCH (21:35)
[2017-12-23] MEDS: CYCLOBENZAPRINE 10 MG TABLET PO PRN (21:35)
[2017-12-23] MEDS: DILTIAZEM CD 240 MG CAPSULE PO SCH (21:35)
[2017-12-23] MEDS: INSULIN GLARGINE 100 UNIT/ML SUBCUT SCH (21:37)
[2017-12-23] MEDS ORDERED: ZALEPLON 5 MG CAPSULE PO PRN (23:14)
[2017-12-24] MEDS: ALBUTEROL/IPRATROPIUM 3 ML NEB RESP TX SCH ×4 (00:18→20:43)
[2017-12-24] MEDS: predniSONE 10 MG TABLET PO SCH (08:58)
[2017-12-24] MEDS: GABAPENTIN 300 MG CAPSULE PO SCH ×2 (08:58→21:51)
[2017-12-24] MEDS: hydrALAZINE 25 MG TABLET PO SCH ×3 (08:58→21:52)
[2017-12-24] MEDS: PANTOPRAZOLE 40 MG TABLET PO SCH (08:58)
[2017-12-24] MEDS: CYANOCOBALAMIN 500 MCG TABLET PO SCH (08:58)
[2017-12-24] MEDS: BENZONATATE 100 MG CAPSULE PO SCH ×3 (08:58→21:52)
[2017-12-24] MEDS: TICAGRELOR 90 MG TABLET PO SCH ×2 (08:58→21:52)
[2017-12-24] MEDS: ASPIRIN EC 81 MG TABLET PO SCH (08:59)
[2017-12-24] MEDS: MONTELUKAST 10 MG TABLET PO SCH ×2 (08:59→21:51)
[2017-12-24] MEDS: MAGNESIUM OXIDE 400 MG TABLET PO SCH ×2 (08:59→21:52)
[2017-12-24] MEDS: FUROSEMIDE 40 MG TABLET PO SCH (08:59)
[2017-12-24] MEDS: INSULIN ASPART PROTAMINE/ASPART 70/30 100 UNIT/ML SUBCUT SCH (08:59)
[2017-12-24] MEDS: THEOPHYLLINE ER 300 MG TABLET PO SCH ×2 (08:59→21:51)
[2017-12-24] MEDS: OMEGA 3 ACID ETHYL ESTERS 1 GM CAPSULE PO SCH (08:59)
[2017-12-24] MEDS: INSULIN LISPRO 100 UNIT/ML SUBCUT SCH ×4 (09:00→22:00)
[2017-12-24] MEDS: BUDESONIDE/FORMOTEROL 160-4.5 INHALER 6 GM INH SCH ×2 (10:03→21:53)
[2017-12-24] MEDS: LEVOFLOXACIN INJ 500 MG in PREMIX 1 EACH IV SCH (10:03)
[2017-12-24] MEDS ORDERED: DILTIAZEM CD 300 MG CAPSULE PO SCH (21:00)
[2017-12-24] MEDS: ALBUTEROL 2 MG TABLET PO SCH ×2 (21:50→21:51)
[2017-12-24] MEDS: ATORVASTATIN 40 MG TABLET PO SCH (21:51)
[2017-12-24] MEDS: ENOXAPARIN 40 MG/0.4 ML SYRINGE SUBCUT SCH (21:53)
[2017-12-24] MEDS: INSULIN GLARGINE 100 UNIT/ML SUBCUT SCH (21:53)
[2017-12-25] MEDS: ALBUTEROL/IPRATROPIUM 3 ML NEB RESP TX SCH ×3 (00:28→15:30)
[2017-12-25] MEDS: ALBUTEROL 2 MG TABLET PO SCH ×2 (05:40→14:57)
[2017-12-25] MEDS ORDERED: DILTIAZEM CD 240 MG CAPSULE PO SCH (09:00)
[2017-12-25] MEDS: FUROSEMIDE 40 MG TABLET PO SCH (10:10)
[2017-12-25] MEDS: GABAPENTIN 300 MG CAPSULE PO SCH (10:10)
[2017-12-25] MEDS: PANTOPRAZOLE 40 MG TABLET PO SCH (10:10)
[2017-12-25] MEDS: MAGNESIUM OXIDE 400 MG TABLET PO SCH (10:10)
[2017-12-25] MEDS: MONTELUKAST 10 MG TABLET PO SCH (10:10)
[2017-12-25] MEDS: THEOPHYLLINE ER 300 MG TABLET PO SCH (10:10)
[2017-12-25] MEDS: hydrALAZINE 25 MG TABLET PO SCH ×2 (10:10→14:58)
[2017-12-25] MEDS: INSULIN ASPART PROTAMINE/ASPART 70/30 100 UNIT/ML SUBCUT SCH (10:10)
[2017-12-25] MEDS: BENZONATATE 100 MG CAPSULE PO SCH ×2 (10:10→14:58)
[2017-12-25] MEDS: BUDESONIDE/FORMOTEROL 160-4.5 INHALER 6 GM INH SCH (10:10)
[2017-12-25] MEDS: predniSONE 10 MG TABLET PO SCH (10:10)
[2017-12-25] MEDS: ASPIRIN EC 81 MG TABLET PO SCH (10:10)
[2017-12-25] MEDS: TICAGRELOR 90 MG TABLET PO SCH (10:10)
[2017-12-25] MEDS: OMEGA 3 ACID ETHYL ESTERS 1 GM CAPSULE PO SCH (10:10)
[2017-12-25] MEDS: INSULIN LISPRO 100 UNIT/ML SUBCUT SCH ×3 (10:10→16:45)
[2017-12-25] MEDS: CYANOCOBALAMIN 500 MCG TABLET PO SCH (10:10)
[2017-12-25 10:20] LABS: Osmolality,Calculated 284.7 MOS/KG (273-304)
[2017-12-25 10:23] LABS: ABG Base Excess 3.2 MMOL/L (-2.5-2.5); ABG HCO3 27.2 MMOL/L (20-26); ABG Oxygen Saturation 94.5 % (95-100); ABG PCO2 42.7 MM HG (35-48); ABG PH 7.424 (7.35-7.45); ABG PO2 71.8 MM HG (80-95); ABG TCO2 24.8 MMOL/L (23-27)
[2017-12-25] MEDS: LEVOFLOXACIN INJ 500 MG in PREMIX 1 EACH IV SCH (12:46)
[2017-12-25 17:22] VITALS: BP 135/63
== END 2017-12-25 17:25 | disposition home or self-care (01) | DRG 174 ==
LOC: EDUNIT# → EDBD → EDSEX → N.ED 09:36 → N.EDINP 11:34 → SUATTDRO 11:34 → N.EDINP 12:42 → N.TELES 12:51
PROVIDERS: ADMIT Internal Medicine Infectious Disease
PROC: CLCCHCL (ICD-10-PCS; 2017-12-15 12:45)

== ENCOUNTER 2018-03-13 15:01 | Inpatient (IN) ==
[2018-03-13] MEDS ORDERED: methylPREDNISolone SOD SUC 125 MG/2 ML VIAL IV STA (15:26)
[2018-03-13] MEDS ORDERED: ALBUTEROL NEB SOLN 5 MG/ML 20 ML/BOTTLE CONT NEB STA (15:26)
[2018-03-13] MEDS ORDERED: ASPIRIN 325 MG TABLET PO STA (15:26)
[2018-03-13] MEDS ORDERED: NITROGLYCERIN 2% OINT 1 INCH/GM PACK TOP STA (15:26)
[2018-03-13 15:34] LABS: Basophils % 0.1 % (0.0-0.8); Hematocrit 39.6 VOL% (42.0-52.0); Hemoglobin 12.7 GM/DL (14.0-18.0); Immature Granulocytes % 0.6 %; Immature Granulocytes Absolute 0.08 #; Lymphocytes # 0.6 10*3/uL (1.4-4.0); Lymphocytes % 4.8 % (21.2-54.2); Mean Corpuscular HGB Conc 32.1 GM/DL (32-36); Mean Corpuscular Hemoglobin 29 PG (27-34); Mean Corpuscular Volume 90.2 FL (87-102); Mean Platelet Volume 11.2 FL (9.6-12.0); Monocytes # 0.3 10*3/uL (0.11-0.8); Monocytes % 2.7 % (1.7-12.7); Neutrophils # 11.6 10*3/uL (1.4-7.4); Neutrophils % 91.8 % (38.7-73.9); Platelet Count 186 T/CUMM (130-400); Red Blood Count 4.39 MC/CUMM (3.8-5.5); Red Cell Distribution Width 14.6 % (9.3-17.3); White Blood Count 12.6 T/CUMM (4-12)
[2018-03-13 15:44] LABS: INR 1.1; PT Patient Result 11.8 SECS; Partial Thromboplastin Time 27.5 SECS (0-40)
[2018-03-13 15:54] LABS: Alanine Aminotransferase 33 U/L (16-61); Albumin 3.7 G/DL (3.4-5.0); Alkaline Phosphatase 128 U/L (45-117); Aspartate Amino Transferase 13 U/L (0-37); Blood Urea Nitrogen 34 MG/DL (7-18); Calcium 8.9 MG/DL (8.5-10.1); Osmolality,Calculated 301.1 MOS/KG (273-304); Sodium 135 MMOL/L (136-145); Total Protein 7.4 G/DL (6.4-8.3)
[2018-03-13 15:58] LABS: Glucose 532 MG/DL (74-106)
[2018-03-13] MEDS ORDERED: INSULIN REGULAR 100 UNIT/ML SUBCUT STA (15:59)
[2018-03-13] MEDS ORDERED: INSULIN REGULAR 100 UNIT/ML IV STA (15:59)
[2018-03-13] MEDS ORDERED: LEVOFLOXACIN INJ 750 MG in PREMIX 1 EACH IV STA (16:03)
[2018-03-13 16:16] LABS: Apearance,Urine CLEAR (Clear); Bilirubin,Urine Negative (Negative); Blood, Urine Negative (Negative); Glucose,Urine (UA) >=500 mg/dL (Negative); Hyaline Casts,Urine 4 /LPF (0-3); Ketones,Urine Negative (Negative); Nitrite,Urine Negative (Negative); Protein,Urine Negative; RBC,Urine 4 /HPF (0-4); Squamous Epithelial Cell,Urine Occasional /HPF (0-10); Urine Color Straw (Yellow); Urine Specific Gravity 1.017 (1.001-1.035); Urine Urobilinogen < 2.0 EU/DL (0.2-1.0); WBC,Urine 2 /HPF (0-6)
[2018-03-13 16:24] LABS: Hypochromasia 1+; Lymphocytes 3 % (20-55); Segmented Neutrophils 91 % (50-85); Total Cells Counted 100
[2018-03-13 16:26] LABS: Barbiturates Screen,Urine Negative (Negative); Benzodiazepines Screen,Urine Negative (Negative); Cannabinoid Screen,Urine Negative (Negative); Opiate Screen,Urine Negative (Negative); Phencyclidine Screen,Urine Negative (Negative)
[2018-03-13] MEDS ORDERED: SODIUM CHLORIDE 0.9% 1,000 ML IV STA (16:27)
[2018-03-13 17:20] LABS: ABG Base Excess -1.9 MMOL/L (-2.5-2.5); ABG HCO3 22.8 MMOL/L (20-26); ABG Oxygen Saturation 98.8 % (95-100); ABG PCO2 38.7 MM HG (35-48); ABG TCO2 20.2 MMOL/L (23-27)
[2018-03-13] MEDS ORDERED: GLUCAGON 1 MG VIAL IM PRN (17:21)
[2018-03-13] MEDS ORDERED: ACETAMINOPHEN 325 MG TABLET PO PRN (17:21)
[2018-03-13] MEDS ORDERED: CYCLOBENZAPRINE 10 MG TABLET PO PRN (17:37)
[2018-03-13] MEDS ORDERED: ALBUTEROL/IPRATROPIUM 3 ML NEB RESP TX PRN (17:40)
[2018-03-13 18:47] LABS: Lactic Acid 4.6 MMOL/L (0.4-2.0)
[2018-03-13] MEDS: ALBUTEROL/IPRATROPIUM 3 ML NEB RESP TX SCH ×2 (19:33→23:47)
[2018-03-13] MEDS ORDERED: hydrALAZINE 25 MG TABLET PO SCH (21:00)
[2018-03-13] MEDS ORDERED: INSULIN GLARGINE 100 UNIT/ML SUBCUT SCH (21:00)
[2018-03-13] MEDS: SODIUM CHLORIDE 0.9% 1,000 ML IV SCH (21:17)
[2018-03-13] MEDS: TICAGRELOR 90 MG TABLET PO SCH (21:21)
[2018-03-13] MEDS: GABAPENTIN 300 MG CAPSULE PO SCH (21:21)
[2018-03-13] MEDS: ATORVASTATIN 40 MG TABLET PO SCH (21:21)
[2018-03-13] MEDS: MONTELUKAST 10 MG TABLET PO SCH (21:22)
[2018-03-13] MEDS: THEOPHYLLINE ER 300 MG TABLET PO SCH (21:22)
[2018-03-13] MEDS: INSULIN REGULAR 100 UNIT/ML SUBCUT SCH (21:23)
[2018-03-13] MEDS: ENOXAPARIN 30 MG/0.3 ML SYRINGE SUBCUT SCH (21:25)
[2018-03-13] MEDS: DILTIAZEM CD 240 MG CAPSULE PO SCH (21:26)
[2018-03-13] MEDS: BUDESONIDE/FORMOTEROL 160-4.5 INHALER 6 GM INH SCH (21:27)
[2018-03-13 22:34] LABS: Lactic Acid 4.6 MMOL/L (0.4-2.0)
[2018-03-13] MEDS: methylPREDNISolone SOD SUC 40 MG/1 ML VIAL IV SCH (23:45)
[2018-03-14 01:51] LABS: Basophils % 0.1 % (0.0-0.8); Hematocrit 35.5 VOL% (42.0-52.0); Hemoglobin 11.6 GM/DL (14.0-18.0); Immature Granulocytes % 0.9 %; Immature Granulocytes Absolute 0.12 #; Lymphocytes # 0.3 10*3/uL (1.4-4.0); Lymphocytes % 2.4 % (21.2-54.2); Mean Corpuscular HGB Conc 32.7 GM/DL (32-36); Mean Corpuscular Hemoglobin 29 PG (27-34); Mean Corpuscular Volume 89.4 FL (87-102); Mean Platelet Volume 11.2 FL (9.6-12.0); Monocytes # 0.1 10*3/uL (0.11-0.8); Monocytes % 0.9 % (1.7-12.7); Neutrophils # 12.2 10*3/uL (1.4-7.4); Neutrophils % 95.7 % (38.7-73.9); Platelet Count 173 T/CUMM (130-400); Red Blood Count 3.97 MC/CUMM (3.8-5.5); Red Cell Distribution Width 14.6 % (9.3-17.3); White Blood Count 12.8 T/CUMM (4-12)
[2018-03-14 01:58] LABS: Calcium 8.6 MG/DL (8.5-10.1); Osmolality,Calculated 298.5 MOS/KG (273-304); Potassium 3.9 MMOL/L (3.5-5.1); Risk Ratio 1.65; VLDL CHOLESTEROL 20.6 MG/DL
[2018-03-14 02:31] LABS: Lymphocytes 3 % (20-55); Segmented Neutrophils 97 % (50-85); Total Cells Counted 100
[2018-03-14 02:32] LABS: Anisocytosis 1+; Platelet Estimate Normal
[2018-03-14] MEDS: SODIUM CHLORIDE 0.9% 1,000 ML IV SCH ×3 (02:45→19:55)
[2018-03-14] MEDS: ONDANSETRON 4 MG/2 ML VIAL IV PRN ×2 (03:23→20:05)
[2018-03-14] MEDS: methylPREDNISolone SOD SUC 40 MG/1 ML VIAL IV SCH ×4 (05:13→23:57)
[2018-03-14] MEDS ORDERED: SODIUM CHLORIDE 0.9% 1,000 ML IV ONE (07:00)
[2018-03-14] MEDS ORDERED: INSULIN ASPART PROTAMINE/ASPART 70/30 100 UNIT/ML SUBCUT SCH (07:30)
[2018-03-14] MEDS: ALBUTEROL/IPRATROPIUM 3 ML NEB RESP TX SCH ×3 (08:00→19:27)
[2018-03-14] MEDS: INSULIN ASPART PROTAMINE/ASPART 70/30 100 UNIT/ML SUBCUT SCH (08:53)
[2018-03-14] MEDS: OMEGA 3 ACID ETHYL ESTERS 1 GM CAPSULE PO SCH (08:54)
[2018-03-14] MEDS: GABAPENTIN 300 MG CAPSULE PO SCH ×2 (08:54→20:02)
[2018-03-14] MEDS: INSULIN REGULAR 100 UNIT/ML SUBCUT SCH ×7 (08:54→20:08)
[2018-03-14] MEDS: DILTIAZEM CD 240 MG CAPSULE PO SCH ×2 (08:55→20:01)
[2018-03-14] MEDS: PANTOPRAZOLE 40 MG TABLET PO SCH (08:55)
[2018-03-14] MEDS: hydrALAZINE 25 MG TABLET PO SCH ×3 (08:55→20:03)
[2018-03-14] MEDS: MONTELUKAST 10 MG TABLET PO SCH ×2 (08:55→20:02)
[2018-03-14] MEDS: TICAGRELOR 90 MG TABLET PO SCH ×2 (08:55→20:03)
[2018-03-14] MEDS: CYANOCOBALAMIN 500 MCG TABLET PO SCH (08:56)
[2018-03-14] MEDS: THEOPHYLLINE ER 300 MG TABLET PO SCH ×2 (08:56→20:02)
[2018-03-14] MEDS: LEVOFLOXACIN INJ 750 MG in PREMIX 1 EACH IV SCH (08:56)
[2018-03-14] MEDS: ASPIRIN EC 81 MG TABLET PO SCH (08:56)
[2018-03-14] MEDS: BUDESONIDE/FORMOTEROL 160-4.5 INHALER 6 GM INH SCH ×2 (08:57→20:09)
[2018-03-14] MEDS: VANCOMYCIN INJ 1,750 MG in SODIUM CHLORIDE 0.9% 500 ML IV SCH (19:56)
[2018-03-14] MEDS: ATORVASTATIN 40 MG TABLET PO SCH (20:02)
[2018-03-14] MEDS: ENOXAPARIN 30 MG/0.3 ML SYRINGE SUBCUT SCH (20:04)
[2018-03-14] MEDS: INSULIN GLARGINE 100 UNIT/ML SUBCUT SCH (20:07)
[2018-03-15] MEDS: ALBUTEROL/IPRATROPIUM 3 ML NEB RESP TX SCH ×4 (02:06→19:12)
[2018-03-15] MEDS: methylPREDNISolone SOD SUC 40 MG/1 ML VIAL IV SCH ×4 (05:26→23:40)
[2018-03-15 07:09] LABS: Basophils % 0.1 % (0.0-0.8); Hematocrit 36.3 VOL% (42.0-52.0); Hemoglobin 12.1 GM/DL (14.0-18.0); Immature Granulocytes % 2.3 %; Immature Granulocytes Absolute 0.55 #; Lymphocytes # 0.3 10*3/uL (1.4-4.0); Lymphocytes % 1.1 % (21.2-54.2); Mean Corpuscular HGB Conc 33.3 GM/DL (32-36); Mean Corpuscular Hemoglobin 29 PG (27-34); Mean Corpuscular Volume 88.3 FL (87-102); Mean Platelet Volume 11.3 FL (9.6-12.0); Monocytes # 0.5 10*3/uL (0.11-0.8); Neutrophils # 22.7 10*3/uL (1.4-7.4); Neutrophils % 94.5 % (38.7-73.9); Platelet Count 181 T/CUMM (130-400); Red Blood Count 4.11 MC/CUMM (3.8-5.5); White Blood Count 24.1 T/CUMM (4-12)
[2018-03-15 07:29] LABS: Band Neutrophils 1 % (0-10); Hypochromasia 1+; Lymphocytes 2 % (20-55); Ovalocytes Slight; Platelet Estimate Adequate; Segmented Neutrophils 97 % (50-85); Total Cells Counted 100
[2018-03-15 07:41] LABS: Calcium 8.4 MG/DL (8.5-10.1); Osmolality,Calculated 300.8 MOS/KG (273-304); Potassium 3.9 MMOL/L (3.5-5.1)
[2018-03-15] MEDS: LEVOFLOXACIN INJ 750 MG in PREMIX 1 EACH IV SCH (08:41)
[2018-03-15] MEDS: INSULIN REGULAR 100 UNIT/ML SUBCUT SCH ×7 (08:42→20:48)
[2018-03-15] MEDS: INSULIN ASPART PROTAMINE/ASPART 70/30 100 UNIT/ML SUBCUT SCH (08:43)
[2018-03-15] MEDS: ASPIRIN EC 81 MG TABLET PO SCH (08:44)
[2018-03-15] MEDS: TICAGRELOR 90 MG TABLET PO SCH ×2 (08:44→20:39)
[2018-03-15] MEDS: THEOPHYLLINE ER 300 MG TABLET PO SCH ×2 (08:44→20:40)
[2018-03-15] MEDS: PANTOPRAZOLE 40 MG TABLET PO SCH (08:45)
[2018-03-15] MEDS: MONTELUKAST 10 MG TABLET PO SCH ×2 (08:45→20:39)
[2018-03-15] MEDS: OMEGA 3 ACID ETHYL ESTERS 1 GM CAPSULE PO SCH (08:45)
[2018-03-15] MEDS: hydrALAZINE 25 MG TABLET PO SCH ×3 (08:45→20:40)
[2018-03-15] MEDS: GABAPENTIN 300 MG CAPSULE PO SCH ×2 (08:45→20:40)
[2018-03-15] MEDS: CYANOCOBALAMIN 500 MCG TABLET PO SCH (08:45)
[2018-03-15] MEDS: DILTIAZEM CD 240 MG CAPSULE PO SCH ×2 (08:46→20:40)
[2018-03-15] MEDS: BUDESONIDE/FORMOTEROL 160-4.5 INHALER 6 GM INH SCH ×2 (08:56→20:50)
[2018-03-15] MEDS: SODIUM CHLORIDE 0.9% 1,000 ML IV SCH (11:27)
[2018-03-15] MEDS: ONDANSETRON 4 MG/2 ML VIAL IV PRN (12:53)
[2018-03-15] MEDS: VANCOMYCIN INJ 1,750 MG in SODIUM CHLORIDE 0.9% 500 ML IV SCH (20:38)
[2018-03-15] MEDS: INSULIN GLARGINE 100 UNIT/ML SUBCUT SCH (20:39)
[2018-03-15] MEDS: ENOXAPARIN 30 MG/0.3 ML SYRINGE SUBCUT SCH (20:39)
[2018-03-15] MEDS: ATORVASTATIN 40 MG TABLET PO SCH (20:40)
[2018-03-16] MEDS: ALBUTEROL/IPRATROPIUM 3 ML NEB RESP TX SCH ×4 (00:04→19:39)
[2018-03-16] MEDS: LEVOFLOXACIN INJ 750 MG in PREMIX 1 EACH IV SCH (08:58)
[2018-03-16] MEDS: INSULIN REGULAR 100 UNIT/ML SUBCUT SCH ×7 (08:59→20:32)
[2018-03-16] MEDS: hydrALAZINE 25 MG TABLET PO SCH ×3 (09:00→20:19)
[2018-03-16] MEDS: FUROSEMIDE 40 MG TABLET PO SCH (09:00)
[2018-03-16] MEDS: INSULIN ASPART PROTAMINE/ASPART 70/30 100 UNIT/ML SUBCUT SCH (09:00)
[2018-03-16] MEDS: MONTELUKAST 10 MG TABLET PO SCH ×2 (09:01→20:16)
[2018-03-16] MEDS: PANTOPRAZOLE 40 MG TABLET PO SCH (09:01)
[2018-03-16] MEDS: THEOPHYLLINE ER 300 MG TABLET PO SCH ×2 (09:01→20:16)
[2018-03-16] MEDS: OMEGA 3 ACID ETHYL ESTERS 1 GM CAPSULE PO SCH (09:01)
[2018-03-16] MEDS: CYANOCOBALAMIN 500 MCG TABLET PO SCH (09:02)
[2018-03-16] MEDS: TICAGRELOR 90 MG TABLET PO SCH ×2 (09:02→20:15)
[2018-03-16] MEDS: ASPIRIN EC 81 MG TABLET PO SCH (09:02)
[2018-03-16] MEDS: DILTIAZEM CD 240 MG CAPSULE PO SCH ×2 (09:02→20:16)
[2018-03-16] MEDS: GABAPENTIN 300 MG CAPSULE PO SCH ×2 (09:03→20:16)
[2018-03-16] MEDS: BUDESONIDE/FORMOTEROL 160-4.5 INHALER 6 GM INH SCH ×2 (09:04→20:27)
[2018-03-16] MEDS: PIPERACILLIN/TAZOBACTAM 3,375 MG in SODIUM CHLORIDE 0.9% 100 ML IV SCH (13:49)
[2018-03-16] MEDS: ATORVASTATIN 40 MG TABLET PO SCH (20:15)
[2018-03-16] MEDS: ENOXAPARIN 30 MG/0.3 ML SYRINGE SUBCUT SCH (20:15)
[2018-03-16] MEDS: INSULIN GLARGINE 100 UNIT/ML SUBCUT SCH (20:15)
[2018-03-16] MEDS: VANCOMYCIN INJ 1,750 MG in SODIUM CHLORIDE 0.9% 500 ML IV SCH (20:22)
[2018-03-17] MEDS: PIPERACILLIN/TAZOBACTAM 3,375 MG in SODIUM CHLORIDE 0.9% 100 ML IV SCH ×2 (00:16→09:46)
[2018-03-17] MEDS: ALBUTEROL/IPRATROPIUM 3 ML NEB RESP TX SCH ×4 (01:22→19:05)
[2018-03-17 05:47] LABS: Basophils % 0.2 % (0.0-0.8); Hematocrit 36.3 VOL% (42.0-52.0); Immature Granulocytes % 2.9 %; Immature Granulocytes Absolute 0.53 #; Lymphocytes # 0.6 10*3/uL (1.4-4.0); Lymphocytes % 3.1 % (21.2-54.2); Mean Corpuscular HGB Conc 33.1 GM/DL (32-36); Mean Corpuscular Hemoglobin 29 PG (27-34); Mean Corpuscular Volume 88.8 FL (87-102); Mean Platelet Volume 11.7 FL (9.6-12.0); Monocytes # 1.1 10*3/uL (0.11-0.8); Monocytes % 5.9 % (1.7-12.7); NRBC # 0.05 10*3/uL; Neutrophils # 16.1 10*3/uL (1.4-7.4); Neutrophils % 87.9 % (38.7-73.9); Platelet Count 172 T/CUMM (130-400); Red Blood Count 4.09 MC/CUMM (3.8-5.5); Red Cell Distribution Width 15.4 % (9.3-17.3); White Blood Count 18.3 T/CUMM (4-12)
[2018-03-17 05:58] LABS: Calcium 8.4 MG/DL (8.5-10.1); Osmolality,Calculated 293.1 MOS/KG (273-304); Potassium 3.7 MMOL/L (3.5-5.1)
[2018-03-17 06:11] LABS: Band Neutrophils 1 % (0-10); Hypochromasia 1+; Lymphocytes 5 % (20-55); Platelet Estimate Adequate; Segmented Neutrophils 89 % (50-85); Total Cells Counted 100
[2018-03-17] MEDS ORDERED: LEVOFLOXACIN INJ 750 MG in PREMIX 1 EACH IV SCH (09:30)
[2018-03-17] MEDS: INSULIN REGULAR 100 UNIT/ML SUBCUT SCH ×7 (09:40→20:50)
[2018-03-17] MEDS: INSULIN ASPART PROTAMINE/ASPART 70/30 100 UNIT/ML SUBCUT SCH (09:41)
[2018-03-17] MEDS: THEOPHYLLINE ER 300 MG TABLET PO SCH ×2 (09:43→20:35)
[2018-03-17] MEDS: CYANOCOBALAMIN 500 MCG TABLET PO SCH (09:43)
[2018-03-17] MEDS: hydrALAZINE 25 MG TABLET PO SCH ×3 (09:43→20:35)
[2018-03-17] MEDS: MONTELUKAST 10 MG TABLET PO SCH ×2 (09:44→20:35)
[2018-03-17] MEDS: predniSONE 20 MG TABLET PO SCH (09:44)
[2018-03-17] MEDS: FUROSEMIDE 40 MG TABLET PO SCH (09:44)
[2018-03-17] MEDS: GABAPENTIN 300 MG CAPSULE PO SCH ×2 (09:44→20:35)
[2018-03-17] MEDS: PANTOPRAZOLE 40 MG TABLET PO SCH (09:44)
[2018-03-17] MEDS: DILTIAZEM CD 240 MG CAPSULE PO SCH ×2 (09:44→20:34)
[2018-03-17] MEDS: OMEGA 3 ACID ETHYL ESTERS 1 GM CAPSULE PO SCH (09:44)
[2018-03-17] MEDS: ASPIRIN EC 81 MG TABLET PO SCH (09:44)
[2018-03-17] MEDS: ONDANSETRON 4 MG/2 ML VIAL IV PRN ×2 (09:45→23:36)
[2018-03-17] MEDS: TICAGRELOR 90 MG TABLET PO SCH ×2 (09:45→20:35)
[2018-03-17] MEDS: BUDESONIDE/FORMOTEROL 160-4.5 INHALER 6 GM INH SCH ×2 (09:46→21:42)
[2018-03-17] MEDS ORDERED: FLUCONAZOLE 150 MG TABLET PO ONE (13:10)
[2018-03-17] MEDS ORDERED: MAGNESIUM HYDROXIDE SUSP 30 ML UDCUP PO PRN (14:19)
[2018-03-17] MEDS ORDERED: VANCOMYCIN INJ 1,750 MG in SODIUM CHLORIDE 0.9% 500 ML IV SCH (15:00)
[2018-03-17] MEDS: NYSTATIN 500,000 UNIT/5 ML UDCUP SWISH/SWAL SCH ×2 (17:03→20:34)
[2018-03-17] MEDS: ENOXAPARIN 30 MG/0.3 ML SYRINGE SUBCUT SCH (20:34)
[2018-03-17] MEDS: INSULIN GLARGINE 100 UNIT/ML SUBCUT SCH (20:34)
[2018-03-17] MEDS: ATORVASTATIN 40 MG TABLET PO SCH (20:35)
[2018-03-18] MEDS: ALBUTEROL/IPRATROPIUM 3 ML NEB RESP TX SCH ×4 (01:26→19:44)
[2018-03-18] MEDS: INSULIN REGULAR 100 UNIT/ML SUBCUT SCH ×7 (08:12→21:05)
[2018-03-18] MEDS ORDERED: LEVOFLOXACIN 250 MG TABLET PO SCH (09:00)
[2018-03-18] MEDS: INSULIN ASPART PROTAMINE/ASPART 70/30 100 UNIT/ML SUBCUT SCH (09:12)
[2018-03-18 09:47] LABS: Basophils % 0.2 % (0.0-0.8); Eosinophils % 0.3 % (0.00-10.9); Hematocrit 39.8 VOL% (42.0-52.0); Hemoglobin 12.8 GM/DL (14.0-18.0); Immature Granulocytes Absolute 0.25 #; Lymphocytes # 0.9 10*3/uL (1.4-4.0); Lymphocytes % 7.5 % (21.2-54.2); Mean Corpuscular HGB Conc 32.2 GM/DL (32-36); Mean Corpuscular Hemoglobin 29 PG (27-34); Mean Corpuscular Volume 90.7 FL (87-102); Mean Platelet Volume 11.2 FL (9.6-12.0); Monocytes # 0.8 10*3/uL (0.11-0.8); Monocytes % 6.4 % (1.7-12.7); NRBC # 0.03 10*3/uL; Neutrophils # 10.4 10*3/uL (1.4-7.4); Neutrophils % 83.6 % (38.7-73.9); Platelet Count 158 T/CUMM (130-400); Red Blood Count 4.39 MC/CUMM (3.8-5.5); Red Cell Distribution Width 15.4 % (9.3-17.3); White Blood Count 12.4 T/CUMM (4-12)
[2018-03-18 10:14] LABS: Calcium 8.3 MG/DL (8.5-10.1); Osmolality,Calculated 284.1 MOS/KG (273-304); Potassium 3.1 MMOL/L (3.5-5.1)
[2018-03-18] MEDS: SODIUM CHLORIDE 0.9% 1,000 ML IV SCH ×2 (10:27→21:29)
[2018-03-18] MEDS: BUDESONIDE/FORMOTEROL 160-4.5 INHALER 6 GM INH SCH ×2 (10:32→20:48)
[2018-03-18] MEDS: ONDANSETRON 4 MG/2 ML VIAL IV PRN (10:47)
[2018-03-18] MEDS: HYDROmorphone 2 MG/1 ML VIAL IV PRN ×4 (11:55→23:33)
[2018-03-18] MEDS: ASPIRIN EC 81 MG TABLET PO SCH (11:57)
[2018-03-18] MEDS: TICAGRELOR 90 MG TABLET PO SCH (11:57)
[2018-03-18] MEDS: hydrALAZINE 25 MG TABLET PO SCH ×2 (11:57→13:59)
[2018-03-18] MEDS: FUROSEMIDE 40 MG TABLET PO SCH (11:58)
[2018-03-18] MEDS: NYSTATIN 500,000 UNIT/5 ML UDCUP SWISH/SWAL SCH ×4 (11:58→20:48)
[2018-03-18] MEDS: DILTIAZEM CD 240 MG CAPSULE PO SCH (11:58)
[2018-03-18] MEDS: OMEGA 3 ACID ETHYL ESTERS 1 GM CAPSULE PO SCH (11:58)
[2018-03-18] MEDS: GABAPENTIN 300 MG CAPSULE PO SCH (11:59)
[2018-03-18] MEDS: THEOPHYLLINE ER 300 MG TABLET PO SCH (11:59)
[2018-03-18] MEDS: MONTELUKAST 10 MG TABLET PO SCH (11:59)
[2018-03-18] MEDS: CYANOCOBALAMIN 500 MCG TABLET PO SCH (11:59)
[2018-03-18] MEDS: PANTOPRAZOLE 40 MG TABLET PO SCH (11:59)
[2018-03-18] MEDS: predniSONE 20 MG TABLET PO SCH (11:59)
[2018-03-18] MEDS ORDERED: POTASSIUM CHLORIDE RIDER 20 MEQ in PREMIX 1 EACH IV PRN (12:57)
[2018-03-18] MEDS ORDERED: MAGNESIUM SULF RIDER 2 GM in PREMIX 1 EACH IV ONE (12:58)
[2018-03-18] MEDS ORDERED: METOPROLOL TARTRATE 5 MG/5 ML VIAL IV PRN (14:08)
[2018-03-18] MEDS: ENOXAPARIN 40 MG/0.4 ML SYRINGE SUBCUT SCH (15:39)
[2018-03-18] MEDS: DEXTROSE 50% 25 GM/50 ML VIAL IV PRN ×2 (15:43→20:47)
[2018-03-18] MEDS: DEXTROSE 5% NACL 0.9% 1,000 ML IV SCH (23:26)
[2018-03-18] MEDS: hydrALAZINE 20 MG/1 ML VIAL IV PRN (23:27)
[2018-03-19] MEDS: ALBUTEROL/IPRATROPIUM 3 ML NEB RESP TX SCH ×4 (00:56→19:40)
[2018-03-19] MEDS: HYDROmorphone 2 MG/1 ML VIAL IV PRN ×4 (02:45→21:21)
[2018-03-19 05:43] LABS: Basophils % 0.2 % (0.0-0.8); Eosinophils # 0.1 10*3/uL (0.0-0.87); Hematocrit 38.1 VOL% (42.0-52.0); Hemoglobin 12.1 GM/DL (14.0-18.0); Immature Granulocytes % 1.2 %; Immature Granulocytes Absolute 0.13 #; Lymphocytes # 0.9 10*3/uL (1.4-4.0); Lymphocytes % 8.8 % (21.2-54.2); Mean Corpuscular HGB Conc 31.8 GM/DL (32-36); Mean Corpuscular Hemoglobin 29 PG (27-34); Mean Corpuscular Volume 92.7 FL (87-102); Mean Platelet Volume 11.6 FL (9.6-12.0); Monocytes # 0.7 10*3/uL (0.11-0.8); Monocytes % 6.9 % (1.7-12.7); Neutrophils # 8.7 10*3/uL (1.4-7.4); Neutrophils % 81.9 % (38.7-73.9); Platelet Count 147 T/CUMM (130-400); Red Blood Count 4.11 MC/CUMM (3.8-5.5); Red Cell Distribution Width 15.2 % (9.3-17.3); White Blood Count 10.7 T/CUMM (4-12)
[2018-03-19 06:01] LABS: Calcium 8.1 MG/DL (8.5-10.1); Potassium 3.4 MMOL/L (3.5-5.1)
[2018-03-19] MEDS: DEXTROSE 50% 25 GM/50 ML VIAL IV PRN (08:03)
[2018-03-19] MEDS: INSULIN REGULAR 100 UNIT/ML SUBCUT SCH ×7 (08:06→21:13)
[2018-03-19] MEDS: FUROSEMIDE 40 MG/4 ML VIAL IV SCH (08:51)
[2018-03-19] MEDS: PANTOPRAZOLE 40 MG VIAL IV SCH (09:37)
[2018-03-19] MEDS: DEXTROSE 5% NACL 0.9% 1,000 ML IV SCH ×3 (09:37→16:21)
[2018-03-19] MEDS: NYSTATIN 500,000 UNIT/5 ML UDCUP SWISH/SWAL SCH ×4 (09:59→21:12)
[2018-03-19] MEDS: ENOXAPARIN 40 MG/0.4 ML SYRINGE SUBCUT SCH (14:25)
[2018-03-19] MEDS: PHENOL 1.4% THROAT SPRAY 177 ML BOTTLE PO PRN (14:25)
[2018-03-19] MEDS: BUDESONIDE/FORMOTEROL 160-4.5 INHALER 6 GM INH SCH ×2 (14:27→21:12)
[2018-03-19] MEDS: hydrALAZINE 20 MG/1 ML VIAL IV PRN ×2 (17:07→23:54)
[2018-03-20] MEDS: DEXTROSE 5% NACL 0.9% 1,000 ML IV SCH ×3 (01:06→09:13)
[2018-03-20] MEDS: ALBUTEROL/IPRATROPIUM 3 ML NEB RESP TX SCH ×4 (01:24→19:44)
[2018-03-20] MEDS: HYDROmorphone 2 MG/1 ML VIAL IV PRN ×3 (04:50→20:44)
[2018-03-20 06:35] LABS: Basophils % 0.1 % (0.0-0.8); Eosinophils # 0.1 10*3/uL (0.0-0.87); Hematocrit 33.9 VOL% (42.0-52.0); Hemoglobin 10.9 GM/DL (14.0-18.0); Immature Granulocytes % 0.8 %; Immature Granulocytes Absolute 0.07 #; Lymphocytes # 0.7 10*3/uL (1.4-4.0); Lymphocytes % 8.2 % (21.2-54.2); Mean Corpuscular HGB Conc 32.2 GM/DL (32-36); Mean Corpuscular Hemoglobin 29 PG (27-34); Mean Corpuscular Volume 90.6 FL (87-102); Mean Platelet Volume 11.2 FL (9.6-12.0); Monocytes # 0.7 10*3/uL (0.11-0.8); Monocytes % 7.2 % (1.7-12.7); Neutrophils # 7.5 10*3/uL (1.4-7.4); Neutrophils % 82.7 % (38.7-73.9); Platelet Count 128 T/CUMM (130-400); Red Blood Count 3.74 MC/CUMM (3.8-5.5); Red Cell Distribution Width 15.1 % (9.3-17.3)
[2018-03-20 07:00] LABS: Calcium 7.7 MG/DL (8.5-10.1); Osmolality,Calculated 280.3 MOS/KG (273-304); Potassium 3.1 MMOL/L (3.5-5.1)
[2018-03-20] MEDS: INSULIN REGULAR 100 UNIT/ML SUBCUT SCH ×7 (07:14→20:51)
[2018-03-20] MEDS: FUROSEMIDE 40 MG/4 ML VIAL IV SCH ×2 (07:54→08:44)
[2018-03-20] MEDS: hydrALAZINE 20 MG/1 ML VIAL IV PRN (07:54)
[2018-03-20] MEDS: PANTOPRAZOLE 40 MG VIAL IV SCH ×2 (07:55→08:44)
[2018-03-20] MEDS: POTASSIUM CHLORIDE RIDER 10 MEQ in PREMIX 1 EACH IV PRN ×4 (08:02→17:52)
[2018-03-20] MEDS: NYSTATIN 500,000 UNIT/5 ML UDCUP SWISH/SWAL SCH ×4 (08:44→20:41)
[2018-03-20] MEDS: BUDESONIDE/FORMOTEROL 160-4.5 INHALER 6 GM INH SCH ×2 (08:44→20:44)
[2018-03-20] MEDS ORDERED: cloNIDine 0.2 MG/24 HR PATCH TRANSDERM SCH (10:00)
[2018-03-20] MEDS: DEXT 5% NACL 0.9% KCL 40 MEQ 40 MEQ/1,000 ML BAG IV SCH ×2 (13:15→20:50)
[2018-03-20] MEDS: ENOXAPARIN 40 MG/0.4 ML SYRINGE SUBCUT SCH (13:46)
[2018-03-21] MEDS: ALBUTEROL/IPRATROPIUM 3 ML NEB RESP TX SCH ×4 (01:48→19:39)
[2018-03-21] MEDS: HYDROmorphone 2 MG/1 ML VIAL IV PRN ×4 (03:13→21:10)
[2018-03-21 04:19] LABS: Basophils % 0.1 % (0.0-0.8); Eosinophils # 0.1 10*3/uL (0.0-0.87); Eosinophils % 1.2 % (0.00-10.9); Hematocrit 33.9 VOL% (42.0-52.0); Immature Granulocytes % 0.6 %; Immature Granulocytes Absolute 0.05 #; Lymphocytes # 0.9 10*3/uL (1.4-4.0); Lymphocytes % 10.3 % (21.2-54.2); Mean Corpuscular HGB Conc 32.4 GM/DL (32-36); Mean Corpuscular Hemoglobin 29 PG (27-34); Mean Corpuscular Volume 88.1 FL (87-102); Mean Platelet Volume 10.9 FL (9.6-12.0); Monocytes # 0.8 10*3/uL (0.11-0.8); Monocytes % 9.5 % (1.7-12.7); Neutrophils # 6.7 10*3/uL (1.4-7.4); Neutrophils % 78.3 % (38.7-73.9); Platelet Count 133 T/CUMM (130-400); Red Blood Count 3.85 MC/CUMM (3.8-5.5); Red Cell Distribution Width 14.9 % (9.3-17.3); White Blood Count 8.6 T/CUMM (4-12)
[2018-03-21 04:38] LABS: Calcium 7.7 MG/DL (8.5-10.1); Osmolality,Calculated 285.3 MOS/KG (273-304); Potassium 3.9 MMOL/L (3.5-5.1)
[2018-03-21] MEDS: DEXT 5% NACL 0.9% KCL 40 MEQ 40 MEQ/1,000 ML BAG IV SCH ×3 (06:34→21:09)
[2018-03-21] MEDS: INSULIN REGULAR 100 UNIT/ML SUBCUT SCH ×7 (07:28→21:08)
[2018-03-21] MEDS: PANTOPRAZOLE 40 MG VIAL IV SCH (08:49)
[2018-03-21] MEDS: BUDESONIDE/FORMOTEROL 160-4.5 INHALER 6 GM INH SCH ×2 (08:49→21:10)
[2018-03-21] MEDS: NYSTATIN 500,000 UNIT/5 ML UDCUP SWISH/SWAL SCH ×4 (08:51→21:08)
[2018-03-21] MEDS ORDERED: MAGNESIUM SULF RIDER 2 GM in PREMIX 1 EACH IV ONE (09:14)
[2018-03-21 09:33] LABS: Troponin I 0.077 NG/ML (0.00-0.045)
[2018-03-21] MEDS: PHENOL 1.4% THROAT SPRAY 177 ML BOTTLE PO PRN (10:18)
[2018-03-21] MEDS: ENOXAPARIN 40 MG/0.4 ML SYRINGE SUBCUT SCH (14:10)
[2018-03-22 05:55] LABS: Basophils % 0.1 % (0.0-0.8); Eosinophils # 0.1 10*3/uL (0.0-0.87); Eosinophils % 1.5 % (0.00-10.9); Hematocrit 34.5 VOL% (42.0-52.0); Hemoglobin 10.8 GM/DL (14.0-18.0); Immature Granulocytes % 0.6 %; Immature Granulocytes Absolute 0.05 #; Lymphocytes # 0.7 10*3/uL (1.4-4.0); Lymphocytes % 9.2 % (21.2-54.2); Mean Corpuscular HGB Conc 31.3 GM/DL (32-36); Mean Corpuscular Hemoglobin 28 PG (27-34); Mean Corpuscular Volume 90.3 FL (87-102); Monocytes # 0.7 10*3/uL (0.11-0.8); Monocytes % 9.1 % (1.7-12.7); Neutrophils # 6.4 10*3/uL (1.4-7.4); Neutrophils % 79.5 % (38.7-73.9); Platelet Count 126 T/CUMM (130-400); Red Blood Count 3.82 MC/CUMM (3.8-5.5); Red Cell Distribution Width 14.8 % (9.3-17.3)
[2018-03-22 06:23] LABS: Calcium 8.4 MG/DL (8.5-10.1); Osmolality,Calculated 278.5 MOS/KG (273-304); Potassium 3.8 MMOL/L (3.5-5.1)
[2018-03-22] MEDS: DEXT 5% NACL 0.9% KCL 40 MEQ 40 MEQ/1,000 ML BAG IV SCH (06:46)
[2018-03-22] MEDS: ALBUTEROL/IPRATROPIUM 3 ML NEB RESP TX SCH ×4 (08:08→20:35)
[2018-03-22] MEDS: PANTOPRAZOLE 40 MG VIAL IV SCH (09:30)
[2018-03-22] MEDS: INSULIN REGULAR 100 UNIT/ML SUBCUT SCH ×7 (10:39→21:07)
[2018-03-22] MEDS: BUDESONIDE/FORMOTEROL 160-4.5 INHALER 6 GM INH SCH ×2 (10:40→21:07)
[2018-03-22] MEDS: NYSTATIN 500,000 UNIT/5 ML UDCUP SWISH/SWAL SCH ×2 (10:40→13:53)
[2018-03-22] MEDS: hydrALAZINE 25 MG TABLET PO SCH ×2 (14:58→21:05)
[2018-03-22] MEDS: ENOXAPARIN 40 MG/0.4 ML SYRINGE SUBCUT SCH (14:58)
[2018-03-22] MEDS: ONDANSETRON 4 MG/2 ML VIAL IV PRN (16:06)
[2018-03-22] MEDS: HYDROmorphone 2 MG/1 ML VIAL IV PRN (17:35)
[2018-03-22] MEDS: TICAGRELOR 90 MG TABLET PO SCH (21:04)
[2018-03-22] MEDS: THEOPHYLLINE ER 300 MG TABLET PO SCH (21:04)
[2018-03-22] MEDS: DILTIAZEM CD 240 MG CAPSULE PO SCH (21:05)
[2018-03-22] MEDS: GABAPENTIN 300 MG CAPSULE PO SCH (21:05)
[2018-03-22] MEDS: ATORVASTATIN 40 MG TABLET PO SCH (21:06)
[2018-03-23] MEDS: ALBUTEROL/IPRATROPIUM 3 ML NEB RESP TX SCH ×3 (01:41→12:40)
[2018-03-23 06:35] LABS: Eosinophils # 0.1 10*3/uL (0.0-0.87); Eosinophils % 1.2 % (0.00-10.9); Hematocrit 31.2 VOL% (42.0-52.0); Immature Granulocytes % 0.3 %; Immature Granulocytes Absolute 0.02 #; Lymphocytes # 0.7 10*3/uL (1.4-4.0); Mean Corpuscular HGB Conc 32.1 GM/DL (32-36); Mean Corpuscular Hemoglobin 29 PG (27-34); Mean Corpuscular Volume 91.5 FL (87-102); Mean Platelet Volume 10.8 FL (9.6-12.0); Monocytes # 0.9 10*3/uL (0.11-0.8); Monocytes % 13.1 % (1.7-12.7); Neutrophils # 4.8 10*3/uL (1.4-7.4); Neutrophils % 74.4 % (38.7-73.9); Platelet Count 132 T/CUMM (130-400); Red Blood Count 3.41 MC/CUMM (3.8-5.5); Red Cell Distribution Width 15.2 % (9.3-17.3); White Blood Count 6.5 T/CUMM (4-12)
[2018-03-23 08:11] LABS: Calcium 8.3 MG/DL (8.5-10.1); Osmolality,Calculated 285.1 MOS/KG (273-304); Potassium 3.6 MMOL/L (3.5-5.1)
[2018-03-23 08:29] VITALS: BP 141/94
[2018-03-23] MEDS: INSULIN REGULAR 100 UNIT/ML SUBCUT SCH ×2 (08:30→08:31)
[2018-03-23] MEDS: INSULIN ASPART PROTAMINE/ASPART 70/30 100 UNIT/ML SUBCUT SCH (08:31)
[2018-03-23] MEDS: PANTOPRAZOLE 40 MG VIAL IV SCH (08:31)
[2018-03-23] MEDS: DILTIAZEM CD 240 MG CAPSULE PO SCH (08:32)
[2018-03-23] MEDS: ASPIRIN EC 81 MG TABLET PO SCH (08:32)
[2018-03-23] MEDS: hydrALAZINE 25 MG TABLET PO SCH (08:32)
[2018-03-23] MEDS: THEOPHYLLINE ER 300 MG TABLET PO SCH (08:32)
[2018-03-23] MEDS: TICAGRELOR 90 MG TABLET PO SCH (08:32)
[2018-03-23] MEDS: GABAPENTIN 300 MG CAPSULE PO SCH (08:33)
[2018-03-23] MEDS: BUDESONIDE/FORMOTEROL 160-4.5 INHALER 6 GM INH SCH (08:33)
== END 2018-03-23 13:30 | disposition home or self-care (01) | DRG 139 ==
LOC: EDBD → EDUNIT# → N.ED 15:01 → SUATTDRO 17:21 → N.EDINP 17:22 → N.5E 18:25
PROVIDERS: ADMIT Hospitalist; ATTEND Internal Medicine